=== PATIENT | male | born 1990 | race Caucasian/White ===

== ENCOUNTER 2019-04-03 13:14 | Emergency (ER) | payer SELFPAY ==
[~2019-04-03] VITALS: Ht 175.3 cm; Wt 72.7 kg
[2019-04-03 13:20] VITALS: Ht 175.3 cm; Wt 72.7 kg
[2019-04-03] MEDS ORDERED: PREDNISONE20 MG PO (16:02)
[2019-04-03] MEDS ORDERED: KEFLEX500 MG PO (16:03)
[2019-04-03 16:39] VITALS: BP 121/82
== END 2019-04-03 16:23 | disposition home or self-care (01) ==
LOC: D.ER 13:14
DX: S40.861A Insect bite (nonvenomous) of right upper arm, initial encounter (principal); W57.XXXA Bitten or stung by nonvenomous insect and other nonvenomous arthropods, initial encounter; Y93.9 Activity, unspecified; Y92.89 Other specified places as the place of occurrence of the external cause